=== PATIENT | male | born 1965 ===

== ENCOUNTER → 2024-02-02 14:45 | Outpatient (BNVA) | payer MEDICAID, SELFPAY | PROVIDERS: Referring Provider Nurse Practitioner Family; Visit Provider Student in an Organized Health Care Education/Training Program | DX: M17.12 Unilateral primary osteoarthritis, left knee | CPT/HCPCS: 73560; 73565 ==

== ENCOUNTER 2024-02-02 16:15 | Outpatient (CLI) | payer SELFPAY | END 2024-02-02 16:16 | disposition home or self-care (01) | LOC: SPT 16:15 | PROVIDERS: Visit Provider Student in an Organized Health Care Education/Training Program | DX: Z46.89 Encounter for fitting and adjustment of other specified devices (principal); M17.12 Unilateral primary osteoarthritis, left knee | CPT/HCPCS: 97760; 99204; L1851 ==